=== PATIENT | female | born 1960 | race Caucasian/White ===

== ENCOUNTER 2018-03-02 06:22 | Day surgery (SDC) | payer OTHER ==
[2018-03-02] MEDS ORDERED: FENTAnyl 50 MCG/ML VIAL (08:05)
[2018-03-02] MEDS ORDERED: MIDAZOLAM 1 MG/ML 2 ML INJ ×2 (08:05)
== END 2018-03-02 10:51 | disposition home or self-care (01) ==
LOC: GIL 06:22
DX: R19.4 Change in bowel habit (principal); K57.90 Diverticulosis of intestine, part unspecified, without perforation or abscess without bleeding; K64.4 Residual hemorrhoidal skin tags; I10 Essential (primary) hypertension
CPT/HCPCS: 45378